=== PATIENT | male | born 1950 | race Caucasian/White ===

== ENCOUNTER → 2017-02-18 | Outpatient (CLI) | payer MEDICARE ==
[~2017-02-18] MED LIST: ACCUPRIL10 MG PO; ASPIR 8181 MG PO; BRILINTA90 MG PO; CENTRUM SILVER1 EAC1 PO; CLARITIN10 M2 PO; COMBIVENT0.074 GM/I INH; DULERA 100 MCG8.8 GM INH; FISH OIL 1,0001 EAC1 PO; FLAX OIL1000 MG PO; HYDROCHLOROTH12.5 M1 PO; NIACIN ER1000 MG PO; NITROGLYCERIN0.4 MG SL; OMEPRAZOLE20 MG PO; OSTEO BI-FLEX1 EAC1 PO; TOPROL XL50 MG PO; TRICOR 48 MG TA48 MG PO; VITAMIN C 500500 MG PO; WELCHOL 625 MG625 MG PO; ZETIA10 MG PO
[2017-02-18 08:12] LABS: BUN/CREATININE RATIO 24 (0-10)
== END ==
LOC: LAB 07:08
PROVIDERS: Emergency Medicine
DX: E78.2 Mixed hyperlipidemia (principal); I10 Essential (primary) hypertension; K21.9 Gastro-esophageal reflux disease without esophagitis; R73.09 Other abnormal glucose
CPT/HCPCS: 36415; 80048; 83036

== ENCOUNTER 2017-05-16 03:26 | Inpatient (IN) | payer MEDICARE ==
[~2017-05-16] VITALS: Ht 177.8 cm; Wt 102.1 kg
[2017-05-16 03:51] LABS: HEMOGLOBIN 15.1 gm/dl (14.0-17.5); RED BLOOD COUNT 4.88 M/UL (4.20-5.50); WHITE BLOOD COUNT 7.1 K/UL (4.5-11.0)
[2017-05-16 04:12] LABS: BUN/CREATININE RATIO 13 (0-10)
[2017-05-16 07:23] LABS: BUN/CREATININE RATIO 15 (0-10)
[2017-05-16] MEDS ORDERED: NITROGLYCERIN0.4 MG SL (08:56)
[2017-05-16] MEDS ORDERED: DULERA 100 MCG8.8 GM INH (08:58)
[2017-05-16] MEDS ORDERED: COMBIVENT0.074 GM/I INH (08:58)
[2017-05-16] MEDS ORDERED: CLARITIN10 M2 PO (08:59)
[2017-05-16] MEDS ORDERED: ASPIR 8181 MG PO (09:00)
[2017-05-16] MEDS ORDERED: ACCUPRIL10 MG PO (09:03)
[2017-05-16] MEDS ORDERED: HYDROCHLOROTH12.5 M1 PO (09:05)
[2017-05-16] MEDS ORDERED: CENTRUM SILVER1 EAC1 PO (09:07)
[2017-05-16] MEDS ORDERED: WELCHOL 625 MG625 MG PO (09:07)
[2017-05-16] MEDS ORDERED: TOPROL XL50 MG PO (09:08)
[2017-05-16] MEDS ORDERED: OSTEO BI-FLEX1 EAC1 PO (09:08)
[2017-05-16] MEDS ORDERED: FISH OIL 1,0001 EAC1 PO (09:09)
[2017-05-16] MEDS ORDERED: VITAMIN C 500500 MG PO (09:10)
[2017-05-16] MEDS ORDERED: FLAX OIL1000 MG PO (09:10)
[2017-05-16] MEDS ORDERED: OMEPRAZOLE20 MG PO (09:11)
[2017-05-16] MEDS ORDERED: ZETIA10 MG PO (09:11)
[2017-05-16] MEDS ORDERED: TRICOR 48 MG TA48 MG PO (09:13)
[2017-05-16] MEDS ORDERED: NIACIN ER1000 MG PO (09:14)
[2017-05-16 20:17] LABS: RED BLOOD COUNT 4.52 M/UL (4.20-5.50); WHITE BLOOD COUNT 7.3 K/UL (4.5-11.0)
[2017-05-16 20:39] LABS: BUN/CREATININE RATIO 15 (0-10)
[2017-05-17 03:58] LABS: HEMOGLOBIN 14.3 gm/dl (14.0-17.5); RED BLOOD COUNT 4.65 M/UL (4.20-5.50); WHITE BLOOD COUNT 7.5 K/UL (4.5-11.0)
[2017-05-17 04:32] LABS: BUN/CREATININE RATIO 16 (0-10)
[2017-05-17] MEDS ORDERED: BRILINTA90 MG PO (15:10)
== END 2017-05-17 16:25 | disposition home or self-care (01) | DRG 247 ==
LOC: ER1 03:26 → M/S 05:03 → ZEROF 05:03 → M/S 07:53 → CCU 11:53
PROVIDERS: Emergency Medicine; Internal Medicine Cardiovascular Disease; Student in an Organized Health Care Education/Training Program; ADMIT Family Medicine
PROC: B2131ZZ Fluoroscopy of Multiple Coronary Artery Bypass Grafts using Low Osmolar Contrast (ICD-10-PCS; principal; 2017-05-16)
PROC: B2111ZZ Fluoroscopy of Multiple Coronary Arteries using Low Osmolar Contrast (ICD-10-PCS; principal; 2017-05-16)
PROC: 027036Z Dilation of Coronary Artery, One Artery with Three Drug-eluting Intraluminal Devices, Percutaneous Approach (ICD-10-PCS; principal; 2017-05-16)
DX: I21.4 Non-ST elevation (NSTEMI) myocardial infarction (principal); Z95.1 Presence of aortocoronary bypass graft; I25.10 Atherosclerotic heart disease of native coronary artery without angina pectoris; I10 Essential (primary) hypertension; K21.9 Gastro-esophageal reflux disease without esophagitis; J45.909 Unspecified asthma, uncomplicated; E78.5 Hyperlipidemia, unspecified; Z88.0 Allergy status to penicillin; Z79.82 Long term (current) use of aspirin; Z79.899 Other long term (current) drug therapy
CPT/HCPCS: 36415; 71010; 80048; 80053; 80061; 82550; 82553; 83036; 83874; 84484; 85025; 85027; 85347; 93005; 94660; 99285; C1725; C1762; C1769; C1874; C1887; J0461; J1644; J2250; J2270; J3010; J7030; J7040; Q9965